=== PATIENT | female | born 1995 | race American Indian/Alaskan Native ===

== ENCOUNTER 2021-09-16 14:39 | Emergency (ER) | payer OTHER ==
[2021-09-16] MEDS ORDERED: DEXAMETHASONE 4 MG TAB PO ONE (19:47)
[2021-09-16] MEDS ORDERED: KETOROLAC 30 MG/1 ML INJ IM ONE (19:47)
[2021-09-16] MEDS ORDERED: CYCLOBENZAPRINE 10 MG TAB PO ONE (19:47)
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
[2021-09-16 21:32] VITALS: BP 173/113
== END 2021-09-16 21:33 | disposition home or self-care (01) ==
LOC: ED 14:39
DX: M54.50 Low back pain, unspecified (principal); M54.2 Cervicalgia; V49.9XXA Car occupant (driver) (passenger) injured in unspecified traffic accident, initial encounter; Y93.89 Activity, other specified; Y92.89 Other specified places as the place of occurrence of the external cause; Y99.8 Other external cause status
CPT/HCPCS: 96372; 99282; J1885; J8540